=== PATIENT | male | born 1990 | race Two or more races ===

== ENCOUNTER 2018-10-30 16:51 | Emergency (ER) | payer OTHER ==
[~2018-10-30] VITALS: Ht 167.6 cm; Wt 54.4 kg
[2018-10-30] MEDS ORDERED: HYDROCODONE/APAP 5/325MG 1 EACH TABLET ONE (17:20)
[2018-10-30] MEDS ORDERED: KETOROLAC TROMETHAMINE INJ 30 MG/ML VIAL ONE (17:20)
--- NOTE | 2018-10-30 17:21 | NUR ---
PT REC'D TO ER C/O PAIN RT SHOULDER TODAY . MOTHER WITH PT 10/[address] Lou FOR TORADOL 30 MG IM AND NORCO 5/325 PO NOW CALLED XRAYAWAITING EVALUATION BY ER PROVIDER.
--- NOTE | 2018-10-30 17:26 | NUR ---
TORADOL 30MG GIVEN IM RIGHT DELTOID PER ERMD VERBAL ORDER.
[2018-10-30] MEDS ORDERED: HYDROCODONE/APAP 5/325MG 1 EACH TABLET PO ONE (17:30)
--- NOTE | 2018-10-30 17:49 | NUR ---
[place]COLM SPEAKING WITH DR RODRIGUEZ
[2018-10-30] MEDS ORDERED: HYDROMORPHONE INJ 2 MG/ML DISP.SYRIN IV ONE (18:00)
[2018-10-30] MEDS ORDERED: ONDANSETRON HCL/PF 4 MG/2 ML VIAL IVP ONE (18:00)
[2018-10-30] MEDS ORDERED: IV NS 0.9% 1,000 ML BAG IV ONE (18:00)
[2018-10-30 18:12] LABS: BASOPHILS # (AUTO) 0.1 /CMM (0.0-0.2); BASOPHILS % (AUTO) 0.6 % (0.0-2.0); EOSINOPHILS % (AUTO) 0.2 % (0.0-6.0); HEMATOCRIT 45 % (39-51); HEMOGLOBIN 15.2 g/dL (13.5-17.5); LYMPHOCYTES # (AUTO) 0.9 /CMM (0.8-4.8); LYMPHOCYTES % (AUTO) 5.5 % (20.0-44.0); MEAN CORPUSCULAR HGB CONC 34 g/dl (31.0-36.0); MEAN CORPUSCULAR VOLUME 90 fL (80-96); MONOCYTES # (AUTO) 0.8 /CMM (0.1-1.30); MONOCYTES % (AUTO) 4.8 % (2.0-12.0); NEUTROPHILS # (AUTO) 14.5 /CMM (1.8-8.9); NEUTROPHILS % (AUTO) 88.9 % (43.0-81.0); PLATELET COUNT (AUTO) 187 /CMM (150-450); RED BLOOD CELL COUNT(AUTO) 4.94 MIL/uL (4.5-6.0); WHITE BLOOD COUNT (AUTO) 16.3 K/uL (4.3-11.0)
--- NOTE | 2018-10-30 18:20 | NUR ---
IV STRTED 20G LEFT AC LABS DRAWN SENT TO LAB
[2018-10-30 18:21] LABS: CALCIUM, SERUM 9.2 mg/dL (8.5-10.1); CREATININE 1.1 mg/dL (0.6-1.3); POTASSIUM 4.1 mmol/L (3.5-5.1)
[2018-10-30] MEDS ORDERED: HYDROMORPHONE 1 MG/1 ML DISP.SYRIN ONE ×2 (18:22→21:09)
[2018-10-30] MEDS ORDERED: ONDANSETRON HCL/PF 4 MG/2 ML VIAL ONE (18:22)
--- NOTE | 2018-10-30 18:26 | NUR ---
SPOKE TO OFFICE MANAGER EXECUTIVE ASSISTANT. SHE GAVE AN AUTHORIZATION NUMBER [id number] FOR PT TO STAY IN [facility]. STATES THAT " HE IS NOT CAPITATED AND [facility] IS CONTRACTED WITH HIS INSURANCE. CALL [phone]. MICHAEL SPOKE TO DOROTHY
[2018-10-30 18:27] LABS: ALBUMIN 4.1 g/dL (3.4-5.0); BILIRUBIN,TOTAL 0.2 mg/dL (0.2-1.0)
[2018-10-30] MEDS ORDERED: CEFAZOLIN 1 GM in IV D5W 50 ML IV ONE (18:30)
--- NOTE | 2018-10-30 18:40 | NUR ---
O2 100 N/C 2L IV DILAUDID 1 MG IVP MEDS GIVEN PER MD ORDER
--- NOTE | 2018-10-30 19:17 | NUR ---
PT STATED FEELING 3/10 RT SHOULDER PAIN
--- NOTE | 2018-10-30 19:51 | NUR ---
PT ACCEPTED AT: HOSPITAL: [facility] ACCEPTING PHYSICIAN: DR. ARCINIEGA
--- NOTE | 2018-10-30 20:14 | NUR ---
CALL FROM [facility]- [facility] [employer] SERVICE ATTENDANT. PER [facility] CLAROSST UNABLE TO ACCEPT PT.
[2018-10-30 21:18] LABS: BAND % (MANUAL) 5 % (0.0-5.0); LYMPHOCYTES % (MANUAL) 8 % (16-48); MONOCYTES % (MANUAL) 4 % (0-11.0); NEUTROPHILS % (MANUAL) 83 (42-76)
[2018-10-30] MEDS ORDERED: HYDROMORPHONE INJ 0.5 MG/0.5 ML SYRINGE IV ONE (21:30)
--- NOTE | 2018-10-30 21:49 | NUR ---
CALLED [facility] FOR [facility] TRANSFER
--- NOTE | 2018-10-30 22:04 | NUR ---
PATIENT WILL BE TRANSFERRED TO [facility] TO THE [place] - [place]EPTED BY DR. CARRIE [place] [facility] [place] NO [place] IS NEEDED
--- NOTE | 2018-10-30 22:05 | NUR ---
[facility] CALLED ETA 0000. TRIP# [id number]
--- NOTE | 2018-10-30 22:31 | NUR ---
[facility] [place] [id number]
[2018-10-31] VITALS: BP 130/76
--- NOTE | 2018-10-31 00:06 | NUR ---
Patient discharged to [facility] in stable condition. Written and verbal after care instructions given. Patient verbalizes understanding of instruction.
== END 2018-10-31 00:12 | disposition short-term general hospital (02) ==
LOC: ER 16:54
DX: S52.391B Other fracture of shaft of radius, right arm, initial encounter for open fracture type I or II (principal); S52.291B Other fracture of shaft of right ulna, initial encounter for open fracture type I or II; W18.39XA Other fall on same level, initial encounter; Y93.67 Activity, basketball; Y92.89 Other specified places as the place of occurrence of the external cause; Y99.8 Other external cause status
CPT/HCPCS: 29515; 36415; 71045; 73060; 73070; 73090; 80048; 80076; 83690; 85025; 85730; 87081; 96365; 96375; 96376; 99285; A4606; A6402; J0690; J1170 ×2; J1885; J2405; J7030; J7060